=== PATIENT | male | born 1950 | race Caucasian/White ===

== ENCOUNTER → 2025-04-18 | Outpatient (CLI) | payer MEDICARE ==
[2025-04-18 18:28] LABS: ALT/SGPT 57 U/L (7.0-40); AST/SGOT 35 U/L (<34); CALCIUM LEVEL 9.0 MG/DL (8.3-10.6); CARBON DIOXIDE LEVEL 25 MMOL/L (20-31); CHLORIDE LEVEL 98 MMOL/L (98-107); CREATININE FOR GFR 0.87 MG/DL (0.70-1.30); GLOMERULAR FILTRATION RATE > 90.0 (>42); POTASSIUM SERUM 4.3 MMOL/L (3.5-5.1); SODIUM LEVEL 136 MMOL/L (136-145)
[2025-04-18 18:35] LABS: BASO # 0.0 10^3/uL (0.0-0.2); BASO % 0.3 % (0.0-1.0); EOS # 0.0 10^3/uL (0.0-0.5); EOS % 0.1 % (0.0-3.0); LYMPH # 1.2 10^3/uL (1.5-5.0); LYMPH % 7.7 % (24.0-44.0); MONO # 0.2 10^3/uL (0.0-0.8); MONO % 1.5 % (2.0-8.0); NEUTROPHILS # 13.8 10^3/uL (1.5-8.5); NEUTROPHILS % 89.4 % (36.0-66.0); PLATELET COUNT, AUTOMATED 421 10^3/uL (150-450)
[2025-04-18 18:41] LABS: ERYTHROCYTE SEDIMENTATION RATE 94 mm/hr (0-20)
[2025-04-18 18:49] LABS: C REACTIVE PROTEIN QUANTITATIV 21.97 MG/DL (<1.0)
== END ==
LOC: M WUC 14:30
PROVIDERS: ATTEND Student in an Organized Health Care Education/Training Program
DX: J01.90 Acute sinusitis, unspecified (principal); A68.9 Relapsing fever, unspecified